=== PATIENT | female | born 1965 | race Caucasian/White ===

== ENCOUNTER 2023-06-13 03:23 | Emergency (ER) | payer SELFPAY ==
[2023-06-13] MEDS ORDERED: Albuterol/Ipratropium 3.0-0.5 MG/3 ML Neb Soln NEB ONE ×2 (03:28→03:42)
[2023-06-13] MEDS ORDERED: Sodium Chloride 0.9% 1,000 ML IV ONE ×2 (03:28→04:52)
[2023-06-13] MEDS ORDERED: Sodium Chloride 0.9% 10 ML Syringe FLUSH PRN (03:28)
[2023-06-13] MEDS ORDERED: methylPREDNISolone Sodium Succinate 125 MG/2 ML SDV IVPUSH ONE (03:29)
[2023-06-13 04:06] LABS: BASOPHILS ABSOLUTE AUTO 0.04 10^3/uL (0.00-0.10); BASOPHILS PERCENT AUTO 0.4 % (0.0-1.0); EOSINOPHILS ABSOLUTE AUTO 0.89 10^3/uL (0.10-0.30); EOSINOPHILS PERCENT AUTO 9.9 % (1.0-3.0); HEMATOCRIT 38.9 % (37.0-47.0); HEMOGLOBIN 12.8 g/dL (12.0-16.0); IMMATURE GRAN ABSOLUTE AUTO 0.02 10^3/uL (0.00-0.50); IMMATURE GRAN PERCENT AUTO 0.2 % (0.0-5.0); LYMPHOCYTES ABSOLUTE AUTO 1.22 10^3/uL (1.00-4.00); LYMPHOCYTES PERCENT AUTO 13.6 % (20.0-40.0); MEAN CORPUSCULAR HEMOGLOBIN 31.8 pg (27.0-31.0); MEAN CORPUSCULAR HGB CONC 32.9 g/dL (32.0-36.0); MEAN CORPUSCULAR VOLUME 96.8 fL (82.0-92.0); MEAN PLATELET VOLUME 11.3 fL (7.4-10.4); MONOCYTES ABSOLUTE AUTO 0.78 10^3/uL (0.10-0.80); MONOCYTES PERCENT AUTO 8.7 % (2.0-8.0); NEUTROPHILS ABSOLUTE AUTO 6.02 10^3/uL (2.50-7.00); NEUTROPHILS PERCENT AUTO 67.2 % (50.0-70.0); PLATELET COUNT,PLT 257 10^3/uL (150-400); RED BLOOD CELL COUNT 4.02 10^6/uL (3.80-5.50); RED CELL DISTRIBUTION WIDTH 12.9 % (11.5-14.5); WHITE BLOOD CELL COUNT,WBC 8.97 10^3/uL (5.00-10.00)
[2023-06-13 04:11] LABS: O2 DELIVERY DEVICE NON REBR MASK
[2023-06-13 04:12] LABS: BASE EXCESS ARTERIAL 0 mmol/L ((-2)-(+3)); BICARBONATE,ARTERIAL 24 mmol/L (21-28); O2 SATURATION ARTERIAL 97 %; PCO2 ARTERIAL 37 mmHG (35-48); PH,ARTERIAL 7.42 pH (7.35-7.45); PO2 ARTERIAL 88 mmHG (83-108)
[2023-06-13 04:21] LABS: ALBUMIN 2.95 g/dL (3.40-5.00); ANION GAP 15.3 mmol/L (5-15); BILIRUBIN TOTAL 0.9 mg/dL (0.2-1.0); CALCIUM 8.4 mg/dL (8.7-10.3); CARBON DIOXIDE,CO2 24.4 mmol/L (21.0-32.0); CREATININE 0.6 mg/dL (0.51-1.17); EST CRCL DRUG DOSING (CG) 95.68 mL/min; POTASSIUM,K 3.7 mmol/L (3.5-5.1); PROTEIN TOTAL,TP 6.2 g/dL (6.4-8.2)
[2023-06-13] MEDS ORDERED: Aspirin 81 MG Tab.Chew PO ONE (04:34)
[2023-06-13] MEDS ORDERED: Aspirin 81 MG Tab.Chew ONE (04:35)
[2023-06-13] MEDS ORDERED: Sodium Chloride 0.9% 1,000 ML ONE (04:53)
[2023-06-13] MEDS ORDERED: Iopamidol 755 Mg/ML 100 ML Bottle IV ONE (05:11)
[2023-06-13] MEDS ORDERED: Sodium Chloride 0.9% 100 ML IV SCH (05:15)
[2023-06-13] MEDS ORDERED: Heparin Sodium 5,000 Units/ML Vial IVPUSH ONE (06:50)
[2023-06-13] MEDS ORDERED: Heparin Sodium/D5W 250 ML IV SCH (07:00)
[2023-06-13 07:46] LABS: PROTHROMBIN TIME 9.9 SEC (9.2-11.2); PTT,PARTIAL THROMBOPLSTIN TIME 27.8 SEC (22.8-31.4)
== END 2023-06-13 08:00 ==
LOC: KA.ED 03:23
DX: I21.4 Non-ST elevation (NSTEMI) myocardial infarction (principal); R06.03 Acute respiratory distress; R79.89 Other specified abnormal findings of blood chemistry; Z88.0 Allergy status to penicillin; Z88.5 Allergy status to narcotic agent; Z20.822 Contact with and (suspected) exposure to COVID-19
CPT/HCPCS: 36415; 36600; 71045; 71275; 80053; 82803; 83605; 84484; 85025; 85379; 85610; 85730; 93010; 96361; 96365; 96375; 96376; 99284; 99285-25; A9270-GY; J1644; J2930; J3490; J7030; J7620-GY; Q9967; U0002

== ENCOUNTER 2025-01-11 13:09 | Emergency (ER) | payer SELFPAY ==
[2025-01-11] MEDS ORDERED: Naloxone 0.4 MG/ML SDV IVPUSH PRN (13:41)
[2025-01-11] MEDS: Ketorolac 30 MG/ML SDV IVPUSH ONE (13:48)
[2025-01-11] MEDS: HYDROmorphone 1 MG/ML Syringe IVPUSH ONE (13:50)
[2025-01-11] MEDS: Sodium Chloride 0.9% 1,000 ML IV ONE (13:59)
== END 2025-01-11 16:07 | disposition home or self-care (01) ==
LOC: KA.ED 13:09
DX: M47.26 Other spondylosis with radiculopathy, lumbar region (principal); M47.814 Spondylosis without myelopathy or radiculopathy, thoracic region; J43.9 Emphysema, unspecified; F17.210 Nicotine dependence, cigarettes, uncomplicated; Z88.5 Allergy status to narcotic agent; Z88.0 Allergy status to penicillin; Z79.51 Long term (current) use of inhaled steroids; Z79.899 Other long term (current) drug therapy
CPT/HCPCS: 71046; 72131; 72192; 96365; 96375; 99284; J1171; J1885; J2800; J3490; J7030

== ENCOUNTER 2025-05-12 19:28 | Emergency (ER) | payer SELFPAY ==
[2025-05-12] MEDS: Albuterol 0.083% 2.5 MG/3 ML Neb Soln NEB ONE (19:42)
[2025-05-12] MEDS: Albuterol 0.083% 2.5 MG/3 ML Neb Soln ONE ×2 (20:06)
== END 2025-05-12 20:39 | disposition home or self-care (01) ==
LOC: KA.ED 19:28
DX: J44.1 Chronic obstructive pulmonary disease with (acute) exacerbation (principal); Z88.0 Allergy status to penicillin; Z88.5 Allergy status to narcotic agent; Z79.51 Long term (current) use of inhaled steroids; Z79.899 Other long term (current) drug therapy
CPT/HCPCS: 71045; 94640; 99285; J7613; J7620; A9270-GY